=== PATIENT | male | born 1940 | race Caucasian/White ===

== ENCOUNTER → 2016-06-21 | Emergency (ER) | payer MEDICARE ==
[~2016-06-21] VITALS: Ht 172.7 cm; Wt 57.0 kg
[2016-06-21 14:19] LABS: BILIRUBIN,URINE Negative (Negative); CLARITY,URINE Clear; COLOR,URINE Yellow; GLUCOSE, URINE (UA) Trace (Negative); LEUKOCYTE ESTERASE ,URINE Negative (Negative); PH,URINE 5.5 (5.0 - 8.0); UROBILINOGEN,URINE 0.2 mg/dL (0.2-1.0)
[2016-06-21 14:22] LABS: URINE CENTRIFUGED VOLUME 12 mL
[2016-06-21 14:28] LABS: SPERM,URINE 3+ /HPF
[2016-06-21 14:30] LABS: RBC,URINE 0-2 /HPF
[2016-06-21 15:02] LABS: BASOPHILS % (AUTO) 0 % (0-2); EOSINOPHILS % (AUTO) 0 % (0-4); LYMPHOCYTES # (AUTO) 1.1 X10^3; MEAN CORPUSCULAR VOLUME 92 FL (80-100); MEAN PLATELET VOLUME 10.7 FL (6.0-9.5); MONOCYTES % (AUTO) 11 % (3-11); NEUTROPHILS # (AUTO) 6.9 X10^3; NEUTROPHILS % (AUTO) 77 % (51-67); PLATELET COUNT 271 10^3uL (150-450); WHITE BLOOD COUNT 8.94 10^3uL (4.0-11.0)
[2016-06-21 15:08] LABS: ALBUMIN 3.5 g/dL (3.4-5.0); ALKALINE PHOSPHATASE 61 U/L (38-126); ANION GAP 14.7 MEQ/L (3-15); BUN/CREATININE RATIO 6 (10-20); CALCULATED IONIZED CALCIUM 3.7 mg/dL (3.8-4.6); LIPASE* < 10 U/L (23-300); TOTAL PROTEIN 6.7 g/dL (6.4-8.5)
[2016-06-21 15:11] LABS: MEAN CORPUSCULAR HEMOGLOBIN 32.2 PG (26.0-34.0)
--- NOTE | 2016-06-21 16:24 | NUR ---
PT REMAINS ON TOILET & ONLY ABLE TO PASS LIQUID SO FAR IN SM AMOUNT. PT WISHES TO SIT ON TOILET FOR A LITTLE LONGER. CL
--- NOTE | 2016-06-21 16:45 | NUR ---
PT HAS ONLY SM AMOUNT OF SOLID PEBBLE YELLOW STOOLS ALONG W/ENEMA RETURNED. CL
--- NOTE | 2016-06-21 18:02 | NUR ---
PT HELD ENEMA AGAIN X 35 MIN. THEN TO TOILET & EXPELLED MINERAL OIL & ONEAL MUCUS. DR ESCALANTE NOTIFIED. CL
[2016-06-21 18:36] VITALS: BP 131/76
== END | disposition home or self-care (01) ==
LOC: EDUNIT# 13:28 → ED 13:30
DX: K59.00 Constipation, unspecified (principal)
CPT/HCPCS: 36415; 74022; 80053; 81003; 81015; 83690; 85025; 99284; 99285

== ENCOUNTER 2016-10-18 14:47 | Outpatient (RCR) | payer MEDICARE ==
[~2016-10-18] VITALS: Ht 172.7 cm; Wt 56.7 kg
[~2016-10-18 14:47] MED LIST: AMLO10TA82 PO; CALC0.253 PO; HCT25T PO; INSU100V31 SQ; LISI1TAB8 PO; NF-LISIN40 PO
[2016-10-18] MEDS: NS FLUSH 3 ML PRN IV (15:48)
[2016-10-18] MEDS: cefTRIAXone SODIUM 1,000 MG in SODIUM CHLORIDE 50 ML IV SCH (15:50)
[2016-10-18 15:56] LABS: MEAN CORPUSCULAR HGB CONC 33.4 g/dL (31.0-37.0); MEAN CORPUSCULAR VOLUME 94 FL (80-100); MEAN PLATELET VOLUME 9.4 FL (6.0-9.5); WHITE BLOOD COUNT 10.81 10^3uL (4.0-11.0)
[2016-10-18 16:10] LABS: ALBUMIN 2.4 g/dL (3.4-5.0); ANION GAP 12.3 MEQ/L (3-15); CALCULATED IONIZED CALCIUM 3.9 mg/dL (3.8-4.6); MEAN CORPUSCULAR HEMOGLOBIN 31.5 PG (26.0-34.0); TOTAL PROTEIN 5.7 g/dL (6.4-8.5)
[2016-10-18 16:13] LABS: PLATELET COUNT 609 10^3uL (150-450)
--- NOTE | 2016-10-18 16:20 | NUR ---
PT IV SECURED & LEFT IN PLACE FOR FURTHER INFUSIONS. CL
[2016-10-18 16:24] LABS: BAND NEUTROPHILS % 2 % (0-6); EOSINOPHILS % 0 % (0-4); LYMPHOCYTES # 2.6 #; MONOCYTES # 0.2 #; MONOCYTES % 2 % (3-11); RBC MORPH NORMAL (NORMAL); SEGMENTED NEUTROPHILS % 71 % (51-67); TOTAL CELLS COUNTED 100
[2016-10-18 17:01] LABS: ERYTHROCYTE SEDIMENTATION RT* 35 mm/hr (0-19)
[2016-10-19] MEDS: NS FLUSH 3 ML PRN IV (14:16)
[2016-10-19] MEDS: cefTRIAXone SODIUM 1,000 MG in SODIUM CHLORIDE 50 ML IV SCH (14:16)
--- NOTE | 2016-10-19 14:35 | NUR ---
PIV to right wrist used for infusion. Flushed after antibx given and saline locked. Secured with Koban.
[2016-10-20] MEDS: NS FLUSH 10 ML PRN IV (15:19)
[2016-10-20] MEDS: cefTRIAXone SODIUM 1,000 MG in SODIUM CHLORIDE 50 ML IV SCH (15:20)
[2016-10-21] MEDS: NS FLUSH 10 ML PRN IV (15:30)
[2016-10-21] MEDS: cefTRIAXone SODIUM 1,000 MG in SODIUM CHLORIDE 50 ML IV SCH (15:30)
--- NOTE | 2016-10-21 15:51 | NUR ---
Pt IV flushed prior to infusion 10ml NS, patent. IV infusion started at 1530
--- NOTE | 2016-10-21 16:06 | NUR ---
IV infusion stopped at 1555, NS flush and IV locked, pt dismissed to home in stable condition
[2016-10-22] MEDS: cefTRIAXone SODIUM 1,000 MG in SODIUM CHLORIDE 50 ML IV SCH (15:19)
[2016-10-22] MEDS: NS FLUSH 3 ML PRN IV (15:19)
[2016-10-22] MEDS: NS FLUSH 10 ML PRN IV (15:19)
[2016-10-23] MEDS: cefTRIAXone SODIUM 1,000 MG in SODIUM CHLORIDE 50 ML IV SCH (15:35)
[2016-10-23] MEDS: NS FLUSH 10 ML PRN IV (15:35)
[2016-10-23] MEDS: NS FLUSH 3 ML PRN IV (15:36)
[2016-10-24] MEDS: NS FLUSH 10 ML PRN IV (15:16)
[2016-10-24] MEDS: cefTRIAXone SODIUM 1,000 MG in SODIUM CHLORIDE 50 ML IV SCH (15:16)
[2016-10-24 15:19] VITALS: BP 93/57
--- NOTE | 2016-10-24 15:21 | NUR ---
Patient had 22G PIV placed yesterday according to patient. Secured with Tegaderm and Coban. Flushes with no symptoms, infusion initiated.
--- NOTE | 2016-10-25 13:15 | NUR ---
Infectious Disease calls and informs DENTON Garduno that patient does not need an antibx infusion today. Patient will be coming in this afternoon, we are to inform him of not needing infusion and dc PIV.
--- NOTE | 2016-10-25 15:23 | NUR ---
This nurse removes PIV to right wrist. Dressing in place with Coban. Patient tolerated well.
== END 2016-10-25 18:28 | disposition home or self-care (01) ==
LOC: EUOP 14:47 → OB 10-21 15:21 → EUOP 10-21 15:45
PROVIDERS: ATTEND Internal Medicine
DX: L03.114 Cellulitis of left upper limb (principal); B96.89 Other specified bacterial agents as the cause of diseases classified elsewhere
CPT/HCPCS: 36415; 80053; 85007; 85027; 85652; 86140; 96365; 96415; J0696; 36000

== ENCOUNTER → 2016-10-19 | Outpatient (CLI) | payer MEDICARE | LOC: EMS 18:39 | DX: Z53.20 Procedure and treatment not carried out because of patient's decision for unspecified reasons (principal) ==